=== PATIENT | male | born 1970 | race Caucasian/White ===

== ENCOUNTER → 2021-06-13 | Outpatient (CLI) | payer BC | LOC: COL.RAD 09:01 | DX: M79.642 Pain in left hand (principal) | CPT/HCPCS: J3301; Q9967 ==

== ENCOUNTER → 2022-03-14 | Outpatient (CLI) | payer BC | LOC: COL.RAD 12:28 | DX: M20.11 Hallux valgus (acquired), right foot (principal); M20.12 Hallux valgus (acquired), left foot | CPT/HCPCS: J3301; Q9967 ==